=== PATIENT | female | born 1955 | race Caucasian/White ===

== ENCOUNTER 2019-02-12 09:16 | Emergency (ER) | payer BC, OTHER ==
[~2019-02-12 09:16] MED LIST: CITA-157 PO
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
[2019-02-12] MEDS ORDERED: ASPIRIN 81 MG CHEW PO ONE (09:30)
[2019-02-12 09:37] LABS: PLATELET COUNT, AUTOMATED 298 K/uL (150-450)
[2019-02-12 09:44] LABS: INR 0.87
[2019-02-12] MEDS ORDERED: diphenhydrAMINE 50 MG/ML VIAL IVP ONE (09:55)
[2019-02-12] MEDS ORDERED: IOPAMIDOL 76% 150 ML INFUS BTL 150 ML ONE (10:16)
[2019-02-12] MEDS ORDERED: NS 0.9% 25 ML BAG 50 ML ONE (10:16)
--- NOTE | 2019-02-12 10:18 | RADIOLOGY IMAGING REPORT ---
FACILITY: [facility] - [place], [place] PATIENT NAME: Gloria Saunders : 1955 MR: [id number] V: [id number] EXAM DATE: ORDERING PHYSICIAN: ESSENCE BARKSDALE TECHNOLOGIST: Location: [facility] - [place] Patient: Gloria Saunders : 1955 Visit/Account:[id number] Date of Sevice: 02/12/2019 Exam type: CHEST PA LAT History: Chest pain, numbness of left arm, nonsmoker Comparison: None. Findings: Lungs are free of acute effusions infiltrates or edema. There is no evidence of pneumothorax or pneu momediastinum. The cardiac silhouette is normal in size. The trachea is in midline. There are mode rate spondylotic changes of the thoracic spine. IMPRESSION: 1. No acute cardiopulmonary process is seen Report Dictated By: Savanna Segura MD at 02/12/2019 10:13 AM Report E-Signed By: Savanna Segura MD at 02/12/2019 10:14 AM [id number]
--- NOTE | 2019-02-12 10:55 | RADIOLOGY IMAGING REPORT ---
FACILITY: PATIENT NAME: Gloria Saunders : 1955 MR: [id number] V: [id number] EXAM DATE: ORDERING PHYSICIAN: ESSENCE BARKSDALE TECHNOLOGIST: Location: [facility] Patient: Gloria Saunders : 1955 Visit/Account:[id number] Date of Sevice: 02/12/2019 CT CTA CHEST W & W/O CON HISTORY: chest pain TECHNIQUE: CTA chest with intravenous contrast attention to pulmonary arteries. Sagittal, coronal a nd slab 3D MIP coronal reconstructed images were also created for further evaluation and interpretati on. One of the following dose optimization techniques was utilized in the performance of this exam: Autom ated exposure control; adjustment of the mA and/or kV according to the patient's size; or use of an i terative reconstruction technique. Specific details can be referenced in the facility's radiology CT exam operational policy. CONTRAST: 75 mL Isovue-370. COMPARISON: None. FINDINGS: Heart/vessels: Satisfactory opacification of the pulmonary arteries without visualized on embolus. M ild calcification within the LAD. Otherwise negative. Mediastinum: Negative. Lymph nodes: Negative. Lungs/pleura: Punctate calcified granuloma within the right upper lobe. Otherwise negative. No pulmo nary infiltrate or consolidation. Visualized upper abdomen: Negative. Bones/soft tissues: Mild multilevel degenerative changes within the thoracic spine. IMPRESSION: No acute findings. No pulmonary embolus. Report Dictated By: Woodrow Jerez MD at 02/12/2019 10:46 AM Report E-Signed By: Woodrow Jerez MD at 02/12/2019 10:49 AM WSN:[id number]
[2019-02-12 11:30] VITALS: BP 127/93
--- NOTE | 2019-02-12 15:25 | EKG ---
FACILITY: [facility] - [place] PATIENT NAME: BERRY VASQUEZ : [id number] MR: [id number] V: [id number] EXAM DATE: ORDERING PHYSICIAN: ESSENCE BARKSDALE TECHNOLOGIST: NILAY Test Reason : CP Blood Pressure : / mmHG Vent. Rate : 075 BPM Atrial Rate : 075 BPM P-R Int : 146 ms QRS Dur : 138 ms QT Int : 422 ms P-R-T Axes : 039 -47 097 degrees QTc Int : 471 ms Normal sinus rhythm Left axis deviation Nonspecific intraventricular block Abnormal ECG No previous ECGs available Confirmed by Chalo Hanks ([id number]) on 02/12/2019 4:20:03 PM Referred By: APOLONIA Confirmed By:Chalo Hernandez
== END 2019-02-12 11:46 | disposition home or self-care (01) ==
LOC: ER 09:22
DX: F41.9 Anxiety disorder, unspecified (principal)
CPT/HCPCS: 71046; 71275; 84484; 85025; 85379; 85610; 85730; 93005; 96374; 99284; J1200; Q9967; 82040; 82247; 82310; 82374; 82435; 82565; 82947; 84075; 84132; 84155; 84295; 84450; 84460; 84520